=== PATIENT | male | born 1985 | race Caucasian/White ===

== ENCOUNTER 2019-10-04 08:41 | Emergency (ER) | payer BC ==
[2019-10-04] MEDS ORDERED: Ibuprofen 800 MG Tab PO ONE (09:05)
--- NOTE | 2019-10-04 09:24 | EDM.PDOC ---
ED HPI GENERAL MEDICAL PROBLEM - General Chief Complaint: Lower Extremity Injury/Pain Stated Complaint: FOOT INJURY Time Seen by Provider: 10/04/19 08:55 - History of Present Illness INITIAL COMMENTS - FREE TEXT/NARRATIVE: History of present illness: Patient presents with right foot and ankle swelling and pain after jumping approximately 8 feet off the roof of a pontoon boat onto the ground 2 days ago he denies any other injuries he is having increasing pain and swelling in the right foot and ankle and is unable to bear weight at this time. Nothing makes it better or worse she took Tylenol at home without relief denies any medical problems or allergies Review of systems: As per history of present illness and below otherwise all systems reviewed and negative. Past medical history: As per history of present illness and as reviewed below otherwise noncontributory. Surgical history: As per history of present illness and as reviewed below otherwise noncontributory. Social history: No reported history of drug or alcohol abuse. Family history: As per history of present illness and as reviewed below otherwise noncontributory. Physical exam: HEENT: Atraumatic, normocephalic, pupils reactive, negative for conjunctival pallor or scleral icterus, mucous membranes moist, throat clear, neck supple, nontender, trachea midline. Lungs: Clear to auscultation, breath sounds equal bilaterally, chest nontender. Heart: S1S2, regular, negative for clicks, rubs, or JVD. Abdomen: Soft, nondistended, nontender. Negative for masses or hepatosplenomegaly. Negative for costovertebral tenderness. Pelvis: Stable nontender. Genitourinary: Deferred. Rectal: Deferred. Extremities: Atraumatic, negative for cords or calf pain. Neurovascular unremarkable. The right foot is very swollen ecchymotic and painful to touch there is no tenderness at the fibular head there is good distal capillary refill and sensation. Neuro: Awake, alert, oriented. Cranial nerves II through XII unremarkable. Cerebellum unremarkable. Motor and sensory unremarkable throughout. Exam nonfocal. Diagnostics: [] Therapeutics: [] Impression: Trauma to foot and ankle [] Plan: X-rays will be obtained and the patient will be reassessed splinted and referred to Ortho [] Definitive disposition and diagnosis as appropriate pending reevaluation and review of above. Treatments [employer]: Reports: Acetaminophen Right Foot Pain Score (Numeric/FACES): 8 - Related Data Allergies Allergy/AdvReac Type Severity Reaction Status Date / Time No Known Allergies Allergy Verified 10/04/19 08:59 Home Meds: Home Meds Acetaminophen/HYDROcodone [Madison 325-5 MG] 1 tab PO Q6H #15 tablet 10/04/19 [Rx] Naproxen [Naprosyn] 500 mg PO Q12HR #20 tab 10/04/19 [Rx] Past Medical History Hematologic History: Reports: None - Infectious Disease History Infectious Disease History: Reports: Chicken Pox, Influenza - Past Surgical History GI Surgical History: Reports: Appendectomy Social & Family History - Family History Family Medical History: Noncontributory - Tobacco Use Smoking Status *Q: Never Smoker Second Hand Smoke Exposure: No - Caffeine Use Caffeine Use: Reports: None - Alcohol Use Days Per Week of Alcohol Use: 2 Number of Drinks Per Day: 2 Total Drinks Per Week: 4 - Recreational Drug Use Recreational Drug Use: No Review of Systems - Review of Systems Review Of Systems: See Below ED EXAM, GENERAL - Physical Exam Exam: See Below Course - Vital Signs Text/Narrative:: Patient had a 3 view foot and a 3 view right ankle read interpreted by me there are 6 total projections there is evidence of a distal fibula fracture no other bony abnormalities dislocations are appreciated. We placed in a walking boot crutches given Madison and naproxen at home ice elevate splint and rest the extremity follow-up with orthopedics. Last Recorded V/S: Last Vital Signs Temp 35.7 C L 10/04/19 08:53 Pulse 76 10/04/19 08:53 Resp 20 10/04/19 08:53 BP 133/81 10/04/19 08:53 Pulse Ox 96 10/04/19 08:53 - Orders/Labs/Meds Orders: Active Orders 24 hr Category Date Time Status Ankle Min 3V Rt [CR] Stat Exams 10/04/19 09:06 Ordered Foot 2V Rt [CR] Stat Exams 10/04/19 09:06 Ordered DME for Discharge [COMM] Stat Oth 10/04/19 09:22 Ordered DME for Discharge [COMM] Stat Oth 10/04/19 09:58 Ordered Meds: Medications Discontinued Medications Generic Name Dose Route Start Last Admin Trade Name Freq PRN Reason Stop Dose Admin Ibuprofen 800 mg 10/04/19 09:05 10/04/19 09:08 Motrin PO 10/04/19 09:06 800 mg ONETIME ONE Administration Departure - Departure Time of Disposition: 10:03 Disposition: Home, Self-Care 01 Condition: Good Clinical Impression: Fibula fracture - Discharge Information *PRESCRIPTION DRUG MONITORING PROGRAM REVIEWED*: Not Applicable *COPY OF PRESCRIPTION DRUG MONITORING REPORT IN PATIENT KARYN: Not Applicable Prescriptions: Naproxen [Naprosyn] 500 mg PO Q12HR #20 tab Acetaminophen/HYDROcodone [Madison 325-5 MG] 1 tab PO Q6H #15 tablet Instructions: Nondisplaced Fibular Ankle Fracture Treated With Immobilization, Adult Referrals: PCP,None [Primary Care Provider] - Forms: ED Department Discharge Additional Instructions: The following information is given to patients seen in the emergency department who are being discharged to home. This information is to outline your options for follow-up care. We provide all patients seen in our emergency department with a follow-up referral. The need for follow-up, as well as the timing and circumstances, are variable depending upon the specifics of your emergency department visit. If you don't have a primary care physician on staff, we will provide you with a referral. We always advise you to contact your personal physician following an emergency department visit to inform them of the circumstance of the visit and for follow-up with them and/or the need for any referrals to a consulting specialist. The emergency department will also refer you to a specialist when appropriate. This referral assures that you have the opportunity for follow-up care with a specialist. All of these measure are taken in an effort to provide you with optimal care, which includes your follow-up. Under all circumstances we always encourage you to contact your private physician who remains a resource for coordinating your care. When calling for follow-up care, please make the office aware that this follow-up is from your recent emergency room visit. If for any reason you are refused follow-up, please contact the [facility] Department at and asked to speak to the emergency department charge nurse. [facility] Professional Building [address] [place] [address], [address] [place] [address] Sepsis Event Note (ED) - Evaluation Sepsis Screening Result: No Definite Risk - Focused Exam Vital Signs: Vital Signs Temp Pulse Resp BP Pulse Ox 10/04/19 08:53 35.7 C L 76 20 133/81 96 - My Orders Last 24 Hours: My Active Orders 10/04/19 09:06 Ankle Min 3V Rt [CR] Stat Foot 2V Rt [CR] Stat 10/04/19 09:22 DME for Discharge [COMM] Stat 10/04/19 09:58 DME for Discharge [COMM] Stat - Assessment/Plan Last 24 Hours: My Active Orders 10/04/19 09:06 Ankle Min 3V Rt [CR] Stat Foot 2V Rt [CR] Stat 10/04/19 09:22 DME for Discharge [COMM] Stat 10/04/19 09:58 DME for Discharge [COMM] Stat
[2019-10-04] MEDS ORDERED: Acetaminophen/HYDROcodone 325-5 MG Tab PO ONE (10:07)
--- NOTE | 2019-10-04 10:27 | CR ---
INDICATION: Right foot pain. Trauma. TECHNIQUE: Two-view right foot COMPARISON: None FINDINGS: Three views of the right foot reveal an acute mildly displaced fracture involving the distal right fibular shaft. No right foot fracture or malalignment is seen. There is soft tissue swelling noted overlying the lateral ankle and dorsum of the foot. IMPRESSION: Acute distal right fibular shaft fracture is partially visualized. A three-view right ankle exam is recommended for further evaluation. No right foot fracture is identified. Dictated by Mejia Franklin MD @ Oct 04 2019 10:21AM Signed by Dr. Mejia Franklin @ Oct 04 2019 10:25AM
--- NOTE | 2019-10-04 10:40 | CR ---
INDICATION: Trauma with pain. TECHNIQUE: Three-view right ankle. COMPARISON: None FINDINGS: Three views of the right ankle reveal an acute mildly displaced an obliquely oriented distal right fibular shaft fracture. This fracture is centered approximately 3-4 centimeters cephalad to the tibiotalar joint space. A tiny avulsion fracture is suspected involving the medial malleolus. A minimally displaced posterior malleolar fracture is also suspected. There is widening of the medial ankle mortise compatible with a ligamentous injury. Lateral soft tissue swelling is present. IMPRESSION: 1. Mildly displaced distal fibular shaft fracture. 2. Suspect a small avulsion fracture from the medial malleolus and a small posterior malleolar fracture as well. 3. Widening of the medial ankle mortise compatible with ligamentous disruption. Dictated by Mejia Franklin MD @ Oct 04 2019 10:33AM Signed by Dr. Mejia Franklin @ Oct 04 2019 10:38AM
== END 2019-10-04 10:28 | disposition home or self-care (01) ==
LOC: MW.ED 08:41
DX: S82.831A Other fracture of upper and lower end of right fibula, initial encounter for closed fracture (principal); W17.89XA Other fall from one level to another, initial encounter; Y93.39 Activity, other involving climbing, rappelling and jumping off
CPT/HCPCS: 73610; 73620; 99283; A9270